=== PATIENT | male | born 2000 | race Caucasian/White ===

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

== ENCOUNTER → 2021-02-25 08:06 | Outpatient (CLI) | payer OTHER, BC ==
[2018-07-28 21:43] VITALS: BMI 31.4
--- NOTE | 2021-02-24 14:08 | NUR ---
CONFIRMED APPT FOR 02/25/21 PT DENIES BLOOD THINNERS PT CONFIRMED ARRIVAL TIME OF 0700
[~2021-02-25 08:06] MED LIST: BACTRIM DS TABL1 TAB PO; TORADOL10 MG PO
--- NOTE | 2021-02-25 09:02 | NUR ---
PATIENT CONSENTED FOR A LEFT SHOULDER ARTHROGRAM WITH MRI TO FOLLOW. TIME OUT PERFORMED AT 0850 BY CHARLES WILLS(R) AND DR LAND. [address] AND GADOLINIUM WAS USED DURING THE PROCEDURE.
== END | disposition home or self-care (01) ==
LOC: D.RAD 08:00
PROVIDERS: ATTEND Orthopaedic Surgery
DX: S43.432A Superior glenoid labrum lesion of left shoulder, initial encounter (principal)